=== PATIENT | female | born 1945 | race Caucasian/White ===

== ENCOUNTER → 2017-09-15 | Outpatient (CLI) | payer MEDICARE, OTHER ==
[~2017-09-15] MED LIST: AZITHROMYCIN 2250 MG PO; B12INJ IM; CALCIUM 600 +1 EAC1 PO; DIGESTIVE ENZY1 EAC3 PO; FISH OIL 1,001000 M2 PO; LEVOTHYROXIN0.075 MG PO; MEDROLDOSEPACK PO; NEXIUM40 MG PO; OXYBUTYNIN CHLO10 MG PO; PROAIR HFA8.5 GM PO; PROBIOTIC1 EAC2 PO; VITAMIN D3400 UNIT PO; VITAMIN E400 UNIT PO
== END ==
LOC: M.RAD 09:46
DX: J45.41 Moderate persistent asthma with (acute) exacerbation (principal)

== ENCOUNTER → 2020-08-21 | Outpatient (CLI) | payer MEDICARE, OTHER | LOC: M.ULTRA 10:07 | PROVIDERS: ATTEND Family Medicine | DX: R10.2 Pelvic and perineal pain (principal) ==